=== PATIENT | female | born 1935 | race Caucasian/White ===

== ENCOUNTER 2016-07-21 13:50 | Emergency (ER) | payer MEDICARE, OTHER ==
[~2016-07-21] VITALS: Ht 157.5 cm; Wt 56.2 kg
[~2016-07-21 13:50] MED LIST: AMLO5TAB2 PO; ASPI-605 PO; SIMV20TA6 PO
[2016-07-21] MEDS ORDERED: AZIT250T6 PO (14:01)
--- NOTE | 2016-07-21 14:09 | NUR ---
DR RANDHAWA AT THE BEDSIDE FOR EVAL AND EXAM.
[2016-07-21] MEDS ORDERED: ALBUTEROL SULFATE 2.5 MG/3 ML NEBU NEB ONE (14:15)
[2016-07-21] MEDS ORDERED: IPRATROPIUM BROMIDE 0.5 MG/2.5 ML NEBU NEB ONE (14:15)
[2016-07-21] MEDS ORDERED: IPRATROPIUM BROMIDE 0.5 MG/2.5 ML NEBU ONE (14:28)
[2016-07-21] MEDS ORDERED: ALBUTEROL SULFATE 2.5 MG/ 0.5 ML NEBU ONE (14:29)
--- NOTE | 2016-07-21 15:00 | NUR ---
Patient discharged to home in stable conditon. Written and verbal after care instructions given. Patient verbalizes understanding of instructions.
[2016-07-21 17:25] VITALS: BP 113/67
== END 2016-07-21 15:00 | disposition home or self-care (01) ==
LOC: ER 13:50
DX: J40 Bronchitis, not specified as acute or chronic (principal); I10 Essential (primary) hypertension; Z88.0 Allergy status to penicillin; Z79.82 Long term (current) use of aspirin
CPT/HCPCS: 71010; A4663; J3590

== ENCOUNTER 2016-10-22 17:44 | Emergency (ER) | payer MEDICARE, OTHER ==
[~2016-10-22] VITALS: Ht 160 cm; Wt 56.2 kg
[~2016-10-22 17:44] MED LIST changes: +AZIT250T6 PO
[2016-10-22 18:41] LABS: BASOPHILS # (AUTO) 0.1 K/uL (0.0-8.0); BASOPHILS % (AUTO) 0.9 % (0.0-2.0); EOSINOPHILS # (AUTO) 0.1 K/uL (0.0-0.7); EOSINOPHILS % (AUTO) 1.2 % (0.0-7.0); HEMATOCRIT 35.8 % (37-47); HEMOGLOBIN 11.9 G/DL (12.0-16.0); LYMPHOCYTES # (AUTO) 1.5 K/UL (0.8-4.8); LYMPHOCYTES % (AUTO) 15.5 % (20.5-51.5); MEAN CORPUSCULAR HGB CONC 33 g/dL (32.0-37.0); MEAN CORPUSCULAR VOLUME 90.1 FL (81.0-99.0); MONOCYTES # (AUTO) 0.7 K/UL (0.1-1.30); NEUTROPHILS % (AUTO) 75.4 % (38.5-71.5); PLATELET COUNT (AUTO) 260 K/UL (150-450); RED BLOOD CELL COUNT(AUTO) 3.98 MIL/UL (4.2-5.4); WHITE BLOOD COUNT (AUTO) 9.4 K/UL (4.0-11.2)
[2016-10-22 18:44] LABS: CARBON DIOXIDE 31 mmol/L (21-32); CHLORIDE 105 mmol/L (98-107); CREATININE 1.3 mg/dL (0.6-1.3); GLUCOSE 120 mg/dL (74-106); POTASSIUM 4.1 mmol/L (3.5-5.1); UREA NITROGEN, BLOOD 25 mg/dL (7-18)
--- NOTE | 2016-10-22 18:50 | NUR ---
Patient is resting comfortably on gurney, no coughing heard at this time, respiration:easy, pending MD evaluation
--- NOTE | 2016-10-22 18:52 | NUR ---
MD is at bedside evaluating this patient now.
[2016-10-22 18:57] LABS: ALANINE AMINOTRANSFERASE 19 U/L (14-59); ALKALINE PHOSPHATASE 101 U/L (50-136); ASPARTATE AMINOTRANSFERASE 21 U/L (15-37); BILIRUBIN,TOTAL 0.2 mg/dL (0.2-1.0); TOTAL PROTEIN, SERUM 7.3 g/dL (6.4-8.2)
[2016-10-22] MEDS ORDERED: IPRATROPIUM BROMIDE 0.5 MG/2.5 ML NEBU NEB ONE (19:00)
[2016-10-22] MEDS ORDERED: ALBUTEROL SULFATE 2.5 MG/3 ML NEBU NEB ONE (19:00)
--- NOTE | 2016-10-22 19:16 | NUR ---
Call placed to [facility], Dr. Mcnair will be paged.
[2016-10-22] MEDS ORDERED: ALBUTEROL SULFATE 2.5 MG/3 ML NEBU ONE (19:19)
[2016-10-22] MEDS ORDERED: IPRATROPIUM BROMIDE 0.5 MG/2.5 ML NEBU ONE (19:19)
[2016-10-22] MEDS ORDERED: LEVOFLOXACIN 750 MG TABLET PO ONE (19:45)
--- NOTE | 2016-10-22 19:46 | NUR ---
2nd call placed to [facility], Dr. Mcnair will be paged.
[2016-10-22] MEDS ORDERED: LEVOFLOXACIN 750 MG TABLET ONE (19:59)
--- NOTE | 2016-10-22 20:25 | NUR ---
Patient discharged to home in stable conditon. Written and verbal after care instructions given. Patient verbalizes understanding of instructions.
== END 2016-10-22 20:26 | disposition home or self-care (01) ==
LOC: ER 17:44
DX: J20.9 Acute bronchitis, unspecified (principal); D64.9 Anemia, unspecified; I10 Essential (primary) hypertension; Z79.82 Long term (current) use of aspirin; Z88.0 Allergy status to penicillin; E78.5 Hyperlipidemia, unspecified
CPT/HCPCS: 36415; 70030-TC; 71010; 85025; 85730; 87040; 93005; A4663; J3590

== ENCOUNTER 2018-12-27 14:58 | Emergency (ER) | payer MEDICARE, OTHER ==
[~2018-12-27] VITALS: Ht 157.5 cm; Wt 54.9 kg
[~2018-12-27 14:58] MED LIST changes: -AMLO5TAB2 PO; +AMLO5TAB9 PO; -AZIT250T6 PO; +SIMV-46 PO; -SIMV20TA6 PO
[2018-12-27] MEDS ORDERED: AZITHROMYCIN 250 MG TABLET PO ONE (16:00)
[2018-12-27] MEDS ORDERED: AZITHROMYCIN 250 MG TABLET ONE (16:02)
--- NOTE | 2018-12-27 16:09 | NUR ---
PATIENT WAS SEEN BY MD. MEDICATION GIVEN ORDERED. DC, RX AND FOLLOW UP INSTRUCTIONS GIVEN AND EXPLAINED TO PATIENT WHO STATES SHE UNDERSTANDS ALL INSTRUCTIONS.
== END 2018-12-27 16:13 | disposition home or self-care (01) ==
LOC: ER 14:58
DX: J20.9 Acute bronchitis, unspecified (principal); I10 Essential (primary) hypertension; Z88.0 Allergy status to penicillin; Z79.82 Long term (current) use of aspirin; Z79.899 Other long term (current) drug therapy
CPT/HCPCS: 71045; A4663; Q0144